=== PATIENT | male | born 2005 | race Caucasian/White ===

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

== ENCOUNTER 2024-03-27 15:52 | Emergency (ER) | payer OTHER ==
[~2024-03-27] VITALS: Ht 167.6 cm; Wt 94.2 kg
[~2024-03-27 15:52] MED LIST changes: +ABIL1TAB11 PO; +CONC18TA14 PO; +FLUO-290 PO; -FLUO10CA18 PO; -MIRT-62 PO; +MIRT-88 PO; +VITMTA PO
[2024-03-27] MEDS ORDERED: AZIT-10 PO (21:14)
[2024-03-27] MEDS ORDERED: BENZ200C70 PO (21:14)
[2024-03-27] MEDS: AZITHROMYCIN 250MG TABLET PO ONE (21:16)
[2024-03-27 21:27] VITALS: BP 128/67; TEMP 99.9; O2SAT 98
== END 2024-03-27 21:29 | disposition home or self-care (01) ==
LOC: M ED 15:52
DX: J06.9 Acute upper respiratory infection, unspecified (principal); Z88.0 Allergy status to penicillin; Z79.2 Long term (current) use of antibiotics; Z79.899 Other long term (current) drug therapy

== ENCOUNTER → 2024-08-13 | Outpatient (REF) | payer OTHER ==
[~2024-08-13] MED LIST changes: +AZIT-10 PO; +BENZ200C70 PO
[2024-08-13 19:40] LABS: Trichomonas vaginalis (AMP) NOT DETECTED (NEGATIVE)
[2024-08-13 20:04] LABS: GC DNA AMPLIFICATION NEGATIVE (NEGATIVE)
== END ==
LOC: M LAB REF 16:44
PROVIDERS: ATTEND Physician Assistant
DX: Z11.3 Encounter for screening for infections with a predominantly sexual mode of transmission (principal)

== ENCOUNTER → 2024-08-20 | Outpatient (CLI) | payer OTHER ==
[2024-08-20 16:27] LABS: HEPATITIS C VIRUS ABY INDEX 0.05 INDEX (<0.8)
== END ==
LOC: M LAB 14:30
PROVIDERS: ATTEND Physician Assistant
DX: Z11.3 Encounter for screening for infections with a predominantly sexual mode of transmission (principal); N89.9 Noninflammatory disorder of vagina, unspecified; Z11.59 Encounter for screening for other viral diseases